=== PATIENT | female | born 1980 | race Caucasian/White ===

== ENCOUNTER → 2022-09-13 | Outpatient (CLI) | payer OTHER ==
[~2022-09-13] MED LIST: CALC600T7 PO; FISHCAP PO; IBUP80TA PO; MAPA500T17 PO; PRENTAB74 PO
== END ==
LOC: M RAD 11:00
PROVIDERS: ATTEND Surgery Vascular Surgery
DX: I83.811 Varicose veins of right lower extremity with pain (principal)